=== PATIENT | female | born 1950 | race Caucasian/White ===

== ENCOUNTER 2021-08-05 07:56 | Outpatient (CLI) | payer MEDICARE, MEDICAID, SELFPAY ==
--- NOTE | 2021-08-05 08:00 | MR_ITS ---
WS: [id number] MRI HEAD WITH CONTRAST WITH ATTENTION TO THE INTERNAL AUDITORY CANALS TECHNIQUE: Sagittal T1, T2 axial, T2 axial flair, axial susceptibility weighted imaging, axial diffus ion weighted images, and coronal T2 images were obtained. Pre and post T1 axial and post T1 coronal i mages. ADC and FSPGR images. Post gadolinium images with attention to the internal auditory canals. A xial fiesta imaging. CLINICAL INFORMATION: SENSORINEURAL HEARING LOSS, BILAT; TINNITUS, BILAT COMPARISON: None. FINDINGS: Small focus of partially restricted diffusion in the right centrum semiovale measuring 5 mm likely re presents a late subacute or chronic focus of ischemia. No enhancement. No other foci of restricted di ffusion. Mild small vessel changes. Moderate parenchymal volume loss. Small vessel changes in the aldo s. Normal posterior fossa. Normal vascular flow voids at the skull base. No extra-axial fluid collect ions. No evidence of mass or mass effect. Paranasal sinuses and mastoid air cells well aerated. No he mosiderin on the susceptibly weighted images. Mild symmetric atrophy temporal lobes and hippocampal formations. Proximal 7th and 8th cranial nerves are normal. Normal trigeminal nerve root entry zones. No evidence of enhancing IAC or CP angle mass. No abnormal gadolinium enhancement. Normal visualized dural venous sinuses. MR/MR iac's wo/w con* [id number] IMPRESSION: 1. Small focus of partially restricted diffusion right centrum semiovale likel y late subacute or early chronic infarct. No enhancement. 2. Mild small vessel changes with moderate parenchymal volume loss. Small vess el changes in the rafael. 3. No evidence of enhancing IAC or CP angle mass. Normal trigeminal nerve root entry zones. 4. Paranasal sinuses and mastoid air cells well aerated.
[2021-08-05 09:03] LABS: Blood Urea Nitrogen 7 mg/dL (8-23); Glomerular Filtration Rate 82.7 mL/min (90-130)
[2021-08-05] MEDS: gadobenate dimeglumine 20 mL vial IV (09:49)
== END 2021-08-05 07:57 | disposition home or self-care (01) ==
PROVIDERS: PCP Family Medicine; Visit Provider Otolaryngology
DX: H90.3 Sensorineural hearing loss, bilateral (principal); H93.13 Tinnitus, bilateral
CPT/HCPCS: 70553; 82565; 84520; A9577

== ENCOUNTER → 2024-04-16 10:15 | Outpatient (BNVA) | payer MEDICARE, MEDICAID, SELFPAY | PROVIDERS: PCP Family Medicine; Visit Provider Emergency Medicine | DX: J02.9 Acute pharyngitis, unspecified (principal); J02.0 Streptococcal pharyngitis; H66.002 Acute suppurative otitis media without spontaneous rupture of ear drum, left ear | CPT/HCPCS: 87071; 87880 ==